=== PATIENT | male | born 1935 | race Caucasian/White ===

== ENCOUNTER 2022-07-21 13:03 | Inpatient (IN) | payer MEDICARE ==
[~2022-07-21] VITALS: Ht 175.3 cm; Wt 84.9 kg
[2022-07-21 13:09] VITALS: BP 133/61
[2022-07-21 13:40] LABS: BASO % 0.3 % (0.0-1.0); EOS # 0.1 10*3/uL (0.0-0.4); EOS % 0.9 % (1.0-4.0); HEMATOCRIT 46.1 % (42.0-52.0); LYMPH # 0.7 10*3/uL (1.3-4.4); LYMPH % 5.7 % (27.0-41.0); MEAN CELL VOLUME 91.7 fl (80.0-94.0); MEAN CORPUSCULAR HGB 30.6 pg (27.0-31.0); MEAN CORPUSCULAR HGB CONC 33.4 g/dl (33.0-37.0); MEAN PLATELET VOLUME 10.5 fl (9.6-12.3); MONO # 0.4 10*3/uL (0.1-1.0); MONO % 3.7 % (3.0-9.0); NEUT # 10.6 10*3/uL (2.3-7.9); NEUT % 89.1 % (47.0-73.0); PLATELET COUNT AUTOMATED 175 10*3/uL (130-400); RED BLOOD COUNT 5.03 10*6/uL (4.50-5.90); RED CELL DISTRI WIDTH 13.2 % (0-14.5); WHITE BLOOD COUNT 11.9 10*3/uL (4.8-10.8)
[2022-07-21 13:53] LABS: ACT PARTIAL THROMBO TIME 30.9 SECONDS (20.0-32.1); INTERNATIONAL NORM RATIO 1.2 (2.0-3.5)
[2022-07-21 14:04] LABS: POTASSIUM 3.8 mmol/L (3.4-5.1); TOTAL PROTEIN 7.1 gm/dL (6.0-8.0)
[2022-07-21 14:35] LABS: BILIRUBIN 1+ (Negative); BLOOD Negative (Negative); CLARITY Cloudy (Clear); COLOR Dark Yellow (Yellow); GLUCOSE Negative (Negative); KETONE Trace (Negative); LEUKO ESTERASE Trace (Negative); NITRITE Negative (Negative)
[2022-07-21 14:42] LABS: RBC 0-2 rbc/hpf (0-2)
[2022-07-21 14:43] LABS: BACTERIA 2+
[2022-07-21 15:36] VITALS: BP 95/47
[2022-07-21 16:46] VITALS: BP 97/47
[2022-07-21 18:15] VITALS: BP 94/47
[2022-07-21] MEDS ORDERED: ATENOLOL25 MG PO (19:51)
[2022-07-21] MEDS ORDERED: LOVASTATIN20 MG PO (19:51)
[2022-07-21] MEDS ORDERED: PANTOPRAZOLE SO40 MG PO (19:52)
[2022-07-21] MEDS ORDERED: LOSARTAN POTASS25 M1 PO (19:52)
[2022-07-21] MEDS ORDERED: ASPIRIN81 M1 PO (19:53)
[2022-07-21 20:00] VITALS: BP 108/62
[2022-07-21] MEDS ORDERED: MULTIVITAMINS1 EAC6 PO (20:35)
[2022-07-22] VITALS: BP 120/59
[2022-07-22 04:10] LABS: BASO % 0.5 % (0.0-1.0); EOS # 0.3 10*3/uL (0.0-0.4); EOS % 3.2 % (1.0-4.0); HEMATOCRIT 38.4 % (42.0-52.0); LYMPH # 0.9 10*3/uL (1.3-4.4); LYMPH % 10.6 % (27.0-41.0); MEAN CELL VOLUME 92.8 fl (80.0-94.0); MEAN CORPUSCULAR HGB 31.2 pg (27.0-31.0); MEAN CORPUSCULAR HGB CONC 33.6 g/dl (33.0-37.0); MEAN PLATELET VOLUME 10.2 fl (9.6-12.3); MONO # 0.6 10*3/uL (0.1-1.0); MONO % 6.3 % (3.0-9.0); NEUT % 79.2 % (47.0-73.0); PLATELET COUNT AUTOMATED 142 10*3/uL (130-400); RED BLOOD COUNT 4.14 10*6/uL (4.50-5.90); RED CELL DISTRI WIDTH 13.2 % (0-14.5); WHITE BLOOD COUNT 8.8 10*3/uL (4.8-10.8)
[2022-07-22 04:21] LABS: INTERNATIONAL NORM RATIO 1.1 (2.0-3.5)
[2022-07-22 04:33] LABS: ALKALINE PHOSPHATASE 120 U/L (46-116); BUN 20 mg/dl (9-23); CHLORIDE 108 mmol/L (98-107); POTASSIUM 3.8 mmol/L (3.4-5.1); SGPT/ALT 87 U/L (10-49); TOTAL PROTEIN 5.7 gm/dL (6.0-8.0)
[2022-07-22 08:00] VITALS: BP 142/68
[2022-07-22 12:00] VITALS: BP 121/78; BP 133/55
[2022-07-22 16:00] VITALS: BP 138/70
[2022-07-22 20:00] VITALS: BP 144/74
[2022-07-23] VITALS (11 sets, daily range): BP systolic 94–166; BP diastolic 45–86
[2022-07-23 04:56] LABS: ALKALINE PHOSPHATASE 100 U/L (46-116); BUN 12 mg/dl (9-23); CHLORIDE 109 mmol/L (98-107); POTASSIUM 3.6 mmol/L (3.4-5.1); SGPT/ALT 57 U/L (10-49); TOTAL PROTEIN 5.7 gm/dL (6.0-8.0)
[2022-07-23 06:26] LABS: BASO # 0.1 10*3/uL (0.0-0.1); BASO % 1.1 % (0.0-1.0); EOS # 0.5 10*3/uL (0.0-0.4); EOS % 8.3 % (1.0-4.0); HEMATOCRIT 37.6 % (42.0-52.0); LYMPH # 0.9 10*3/uL (1.3-4.4); LYMPH % 14.3 % (27.0-41.0); MEAN CELL VOLUME 94.2 fl (80.0-94.0); MEAN CORPUSCULAR HGB 30.6 pg (27.0-31.0); MEAN CORPUSCULAR HGB CONC 32.4 g/dl (33.0-37.0); MEAN PLATELET VOLUME 10.9 fl (9.6-12.3); MONO # 0.5 10*3/uL (0.1-1.0); MONO % 8.1 % (3.0-9.0); NEUT # 4.4 10*3/uL (2.3-7.9); PLATELET COUNT AUTOMATED 154 10*3/uL (130-400); RED BLOOD COUNT 3.99 10*6/uL (4.50-5.90); RED CELL DISTRI WIDTH 13.2 % (0-14.5); WHITE BLOOD COUNT 6.5 10*3/uL (4.8-10.8)
[2022-07-24] VITALS: BP 123/71
[2022-07-24 05:22] LABS: BUN 13 mg/dl (9-23); CHLORIDE 107 mmol/L (98-107); POTASSIUM 4.1 mmol/L (3.4-5.1)
[2022-07-24 06:07] LABS: EOS % 0.1 % (1.0-4.0); HEMATOCRIT 36.4 % (42.0-52.0); LYMPH # 0.7 10*3/uL (1.3-4.4); LYMPH % 8.8 % (27.0-41.0); MEAN CELL VOLUME 91.7 fl (80.0-94.0); MEAN CORPUSCULAR HGB 30.2 pg (27.0-31.0); MEAN PLATELET VOLUME 10.6 fl (9.6-12.3); MONO # 0.4 10*3/uL (0.1-1.0); MONO % 5.2 % (3.0-9.0); NEUT # 6.8 10*3/uL (2.3-7.9); NEUT % 85.5 % (47.0-73.0); PLATELET COUNT AUTOMATED 195 10*3/uL (130-400); RED BLOOD COUNT 3.97 10*6/uL (4.50-5.90); RED CELL DISTRI WIDTH 12.9 % (0-14.5)
[2022-07-24 08:00] VITALS: BP 120/71
[2022-07-24 12:00] VITALS: BP 125/68
[2022-07-24 16:00] VITALS: BP 129/64
[2022-07-24 20:00] VITALS: BP 147/72
[2022-07-25] VITALS: BP 143/69
[2022-07-25 04:11] LABS: BASO # 0.1 10*3/uL (0.0-0.1); BASO % 0.8 % (0.0-1.0); EOS # 0.6 10*3/uL (0.0-0.4); EOS % 9.1 % (1.0-4.0); HEMATOCRIT 36.4 % (42.0-52.0); LYMPH # 1.5 10*3/uL (1.3-4.4); LYMPH % 23.1 % (27.0-41.0); MEAN CELL VOLUME 91.7 fl (80.0-94.0); MEAN CORPUSCULAR HGB 30.5 pg (27.0-31.0); MEAN CORPUSCULAR HGB CONC 33.2 g/dl (33.0-37.0); MEAN PLATELET VOLUME 10.5 fl (9.6-12.3); MONO # 0.5 10*3/uL (0.1-1.0); MONO % 7.6 % (3.0-9.0); NEUT # 3.8 10*3/uL (2.3-7.9); NEUT % 59.1 % (47.0-73.0); PLATELET COUNT AUTOMATED 199 10*3/uL (130-400); RED BLOOD COUNT 3.97 10*6/uL (4.50-5.90); WHITE BLOOD COUNT 6.5 10*3/uL (4.8-10.8)
[2022-07-25 04:34] LABS: BUN 15 mg/dl (9-23); CHLORIDE 109 mmol/L (98-107); POTASSIUM 4.1 mmol/L (3.4-5.1)
[2022-07-25 08:00] VITALS: BP 113/76; BP 152/72
[2022-07-25] MEDS ORDERED: CIPROFLOXACIN500 M4 PO (11:53)
[2022-07-25 12:00] VITALS: BP 152/74
== END 2022-07-25 14:46 | disposition home or self-care (01) | DRG 853 ==
LOC: ED 13:03 → 5E 16:52 → EDHOLD 16:52 → 5E 19:27
PROVIDERS: Emergency Medicine; Family Medicine; Internal Medicine; ADMIT Internal Medicine; ATTEND Internal Medicine
PROC: 0FT44ZZ Resection of Gallbladder, Percutaneous Endoscopic Approach (ICD-10-PCS; principal; 2022-07-23)
DX: A41.9 Sepsis, unspecified organism (principal); G93.41 Metabolic encephalopathy; N17.0 Acute kidney failure with tubular necrosis; E27.49 Other adrenocortical insufficiency; E87.20 Acidosis, unspecified; J98.11 Atelectasis; K80.63 Calculus of gallbladder and bile duct with acute cholecystitis with obstruction; K80.01 Calculus of gallbladder with acute cholecystitis with obstruction; K58.0 Irritable bowel syndrome with diarrhea; R65.20 Severe sepsis without septic shock; R74.01 Elevation of levels of liver transaminase levels; K76.0 Fatty (change of) liver, not elsewhere classified; I10 Essential (primary) hypertension; B96.20 Unspecified Escherichia coli [E. coli] as the cause of diseases classified elsewhere; Z82.49 Family history of ischemic heart disease and other diseases of the circulatory system; Z79.82 Long term (current) use of aspirin; Z79.899 Other long term (current) drug therapy

== ENCOUNTER 2023-06-26 12:47 | Emergency (ER) | payer MEDICARE ==
[~2023-06-26] VITALS: Ht 175.2 cm; Wt 81.6 kg
[~2023-06-26 12:47] MED LIST: ASPIRIN81 M1 PO; ATENOLOL25 MG PO; CIPROFLOXACIN500 M4 PO; LOSARTAN POTASS25 M1 PO; LOVASTATIN20 MG PO; MULTIVITAMINS1 EAC6 PO; PANTOPRAZOLE SO40 MG PO
== END 2023-06-26 16:09 | disposition home or self-care (01) ==
LOC: ED 12:47
DX: S20.212A Contusion of left front wall of thorax, initial encounter (principal); M54.9 Dorsalgia, unspecified; Z98.890 Other specified postprocedural states; W01.10XA Fall on same level from slipping, tripping and stumbling with subsequent striking against unspecified object, initial encounter; Y93.E1 Activity, personal bathing and showering; Y92.89 Other specified places as the place of occurrence of the external cause; Y99.8 Other external cause status

== ENCOUNTER → 2024-05-20 | Outpatient (CLI) | payer MEDICARE ==
[~2024-05-20] MED LIST changes: +CARVEDILOL3.125 MG PO; +CYMBALTA60 MG PO; +MIDODRINE HCL10 MG PO; +MIDODRINE HCL5 M1 PO; +NAMENDA-5 PO; +RIVASTIGMINE1 EACH T
== END | disposition home or self-care (01) ==
LOC: RESCLI 13:33
PROVIDERS: ATTEND Internal Medicine
DX: F03.90 Unspecified dementia, unspecified severity, without behavioral disturbance, psychotic disturbance, mood disturbance, and anxiety (principal); I10 Essential (primary) hypertension; M25.562 Pain in left knee; K21.9 Gastro-esophageal reflux disease without esophagitis; N40.0 Benign prostatic hyperplasia without lower urinary tract symptoms; Z79.899 Other long term (current) drug therapy

== ENCOUNTER → 2024-09-12 | Day surgery (SDC) | payer MEDICARE ==
[~2024-09-12] VITALS: Ht 175.2 cm; Wt 81.6 kg
[~2024-09-12] MED LIST changes: +Lactated Ringer's Solution 500 ML IV ONE; +Lidocaine Hydrochloride 2% 5 ML SDV IM ONE; +PROPOFOL 200 MG/20 ML VIAL IV ONE
[2024-09-12 06:57] VITALS: BP 159/87
[2024-09-12 07:45] VITALS: BP 132/73
[2024-09-12 08:00] VITALS: BP 119/69
[2024-09-12 08:09] VITALS: BP 137/78
== END | disposition home or self-care (01) ==
LOC: SDC 09-08 08:00
PROVIDERS: ATTEND Surgery
DX: K22.2 Esophageal obstruction (principal); K44.9 Diaphragmatic hernia without obstruction or gangrene; K21.9 Gastro-esophageal reflux disease without esophagitis; K63.89 Other specified diseases of intestine; R73.9 Hyperglycemia, unspecified; K57.90 Diverticulosis of intestine, part unspecified, without perforation or abscess without bleeding; E78.5 Hyperlipidemia, unspecified; I10 Essential (primary) hypertension; M19.90 Unspecified osteoarthritis, unspecified site; M47.9 Spondylosis, unspecified; Z90.49 Acquired absence of other specified parts of digestive tract; Z98.890 Other specified postprocedural states; Z79.899 Other long term (current) drug therapy

== ENCOUNTER → 2025-01-06 | Outpatient (CLI) | payer MEDICARE ==
[~2025-01-06] MED LIST changes: -Lactated Ringer's Solution 500 ML IV ONE; -Lidocaine Hydrochloride 2% 5 ML SDV IM ONE; -PROPOFOL 200 MG/20 ML VIAL IV ONE
== END | disposition home or self-care (01) ==
LOC: US 02:51
PROVIDERS: ATTEND Internal Medicine
DX: R60.0 Localized edema (principal)